=== PATIENT | female | born 1975 | race Caucasian/White ===

== ENCOUNTER 2020-08-23 19:41 | Emergency (ER) | payer OTHER ==
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
--- NOTE | 2020-08-24 06:53 | CR ---
Right foot: 3 views of the right foot were obtained. Comparison: No previous study. No calcaneal spurs are seen. Joint spaces are fairly well preserved. Small detached calcification is noted off the anterior talus which appears to be old. No acute fracture, dislocation or other bony abnormality is appreciated. Impression: 1. Calcification of the anterior talus which is believed to be old. 2. Nothing acute is appreciated on right foot exam. Diagnostic code #2
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
== END 2020-08-23 21:08 | disposition home or self-care (01) ==
LOC: JD.ED 19:41
DX: M79.671 Pain in right foot (principal); E03.9 Hypothyroidism, unspecified; Z79.899 Other long term (current) drug therapy; Z72.0 Tobacco use; Z88.5 Allergy status to narcotic agent; Y04.0XXA Assault by unarmed brawl or fight, initial encounter
CPT/HCPCS: 73610-26-RT; 73610-RT; 73630-26-RT; 73630-RT; 99283; 99284-25

== ENCOUNTER 2020-09-07 17:10 | Emergency (ER) | payer MEDICAID ==
[2020-09-07] MEDS ORDERED: Silver Sulfadiazine 1% Crm 400 GM Jar TOP ONE (17:35)
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
== END 2020-09-07 17:58 | disposition home or self-care (01) ==
LOC: JD.ED 17:10
DX: L56.8 Other specified acute skin changes due to ultraviolet radiation (principal); I10 Essential (primary) hypertension; E03.9 Hypothyroidism, unspecified; Z72.0 Tobacco use; Z88.5 Allergy status to narcotic agent; Z79.899 Other long term (current) drug therapy
CPT/HCPCS: 16020; 99282; A9270; 99283

== ENCOUNTER 2020-10-19 15:34 | Emergency (ER) | payer MEDICAID ==
[2020-10-19] MEDS ORDERED: Ondansetron 4 MG/2 ML SDV IVPUSH ONE (16:19)
[2020-10-19] MEDS ORDERED: Sodium Chloride 0.9% 1,000 ML IV STA (16:19)
[2020-10-19] MEDS ORDERED: HYDROmorphone 0.5 MG/0.5 ML Syringe IVPUSH ONE (16:19)
--- NOTE | 2020-10-19 17:15 | CT ---
CT abdomen and pelvis Technique: Multiple axial sections were obtained from above the dome of the diaphragm inferiorly to the pubic symphysis. Intravenous and oral contrast was not utilized. Reconstructed coronal and sagittal images were obtained. Comparison: No prior abdominal imaging is available. Findings: Kidneys show no abnormal calcifications. No ureteral dilatation is seen. No discrete mass is seen within either kidney. No abnormality is definitely appreciated within the bladder. Visualized lung bases show nothing acute. Noncontrast appearance of the liver shows no discrete abnormality. Spleen size is normal. Adrenal glands show no focal abnormality. Pancreas shows no discrete abnormality. Gallbladder contains no calcified gallstones. Aorta shows no aneurysm. No retroperitoneal adenopathy or mesenteric abnormalities are seen. Appendix is seen which is normal in size. No pelvic mass or adenopathy is seen. Prior hysterectomy is incidentally noted. Bone window settings were reviewed which show scattered degenerative change within the spine. No acute osseous abnormality is appreciated. Impression: 1. No renal calculi, ureteral dilatation or ureteral stone is seen. 2. Nothing acute is definitely appreciated on noncontrast CT study of the abdomen and pelvis. 3. No etiology is definitely identified to explain hematuria or flank pain. Diagnostic code #2
[2020-10-19] MEDS ORDERED: Ketorolac 30 MG/ML SDV IVPUSH ONE (18:09)
[2020-10-19] MEDS ORDERED: Potassium Chloride 20 MEQ Tab.ER PO ONE (18:13)
--- NOTE | 2020-10-19 18:17 | EDM.PDOC ---
ED HPI GENERAL MEDICAL PROBLEM - General Chief Complaint: Genitourinary Problem Stated Complaint: POSS KIDNEY STONES/INFECTION Time Seen by Provider: 10/19/20 15:46 Source of Information: Reports: Patient, RN Notes Reviewed History Limitations: Reports: No Limitations - History of Present Illness INITIAL COMMENTS - FREE TEXT/NARRATIVE: Patient is a 45-year-old female presenting to the emergency department with complaints of hematuria and bilateral back pain with the left being worse than the right. Reports back pain has been going on for few days and she just noticed hematuria today. Denies any burning with urination but does state that she has some burning suprapubically. She feels she may have a kidney stone, although she does not have a history of kidney stones. She does have a history of recurrent urinary tract infections. Denies any fever, chills, nausea, or vomiting. Middle Back Pain Score (Numeric/FACES): 8 - Related Data Allergies Allergy/AdvReac Type Severity Reaction Status Date / Time morphine Allergy Severe Airway Verified 09/07/20 17:24 Tightness Home Meds: Home Meds Cyclobenzaprine [Flexeril] 10 mg PO DAILY 08/23/20 [History] Dicyclomine [Bentyl] 10 mg PO ASDIRECTED PRN 08/23/20 [History] Gabapentin [Neurontin] 1 tab PO TID #9 tab 08/23/20 [Rx] Levothyroxine [Synthroid] 75 mcg PO ACBREAKFAST 08/23/20 [History] Ondansetron [Zofran ODT] 4 mg PO Q6H PRN 08/23/20 [History] lamoTRIgine [LaMICtal] 100 mg PO DAILY 08/23/20 [History] ALPRAZolam [Xanax] 1 mg PO TID 09/07/20 [History] Ciprofloxacin HCl [Cipro] 500 mg PO BID 7 Days #14 tablet 10/19/20 [Rx] Dozepin 100 mg PO BEDTIME 10/19/20 [History] Lurasidone HCl [Latuda] 40 mg PO DAILY 10/19/20 [History] Past Medical History Cardiovascular History: Reports: Hypertension Gastrointestinal History: Reports: GERD Musculoskeletal History: Reports: Fracture Psychiatric History: Reports: Anxiety, Bipolar, Depression, OCD Endocrine/Metabolic History: Reports: Hypothyroidism Oncologic (Cancer) History: Reports: Cervix - Infectious Disease History Infectious Disease History: Reports: Chicken Pox - Past Surgical History Female Surgical History: Reports: Hysterectomy, Oophorectomy Musculoskeletal Surgical History: Reports: ORIF Social & Family History - Tobacco Use Tobacco Use Status *Q: Current Every Day Tobacco User Years of Tobacco use: 30 Packs/Tins Daily: 1 - Caffeine Use Caffeine Use: Reports: Coffee - Recreational Drug Use Recreational Drug Use: No - Living Situation & Occupation Living situation: Reports: , Other ([facility] with her boyfriend) Occupation: Unemployed ED ROS GENERAL - Review of Systems Review Of Systems: See Below Constitutional: Reports: No Symptoms. Denies: Fever, Chills HEENT: Reports: No Symptoms Respiratory: Reports: No Symptoms Cardiovascular: Reports: No Symptoms, Palpitations GI/Abdominal: Reports: No Symptoms. Denies: Abdominal Pain, Nausea, Vomiting : Reports: Flank Pain, Hematuria, Other (suprapubic "burning"). Denies: Dysuria Musculoskeletal: Reports: Back Pain Skin: Reports: No Symptoms Neurological: Reports: No Symptoms Psychiatric: Reports: No Symptoms Hematologic/Lymphatic: Reports: No Symptoms Immunologic: Reports: No Symptoms ED EXAM, RENAL/ - Physical Exam Exam: See Below Exam Limited By: No Limitations General Appearance: Alert, WD/WN, No Apparent Distress Respiratory/Chest: No Respiratory Distress, Lungs Clear, Normal Breath Sounds, No Accessory Muscle Use, Chest Non-Tender Cardiovascular: Normal Peripheral Pulses, Regular Rate, Rhythm, No Edema, No Gallop, No JVD, No Murmur, No Rub GI/Abdominal: Normal Bowel Sounds, Soft, Non-Tender, No Organomegaly, No Distention, No Abnormal Bruit, No Mass Back Exam: Normal Inspection, Full Range of Motion, CVA Tenderness (L), CVA Tenderness (R), Other Neurological: Alert, Oriented, CN II-XII Intact, Normal Cognition, Normal Gait, Normal Reflexes, No Motor/Sensory Deficits Psychiatric: Normal Affect, Normal Mood Skin Exam: Warm, Dry, Intact, Normal Color, No Rash Course - Vital Signs Last Recorded V/S: Last Vital Signs Temp 98.1 F 10/19/20 15:51 Pulse 81 10/19/20 15:51 Resp 20 10/19/20 15:51 BP 125/93 H 10/19/20 15:51 Pulse Ox 97 10/19/20 15:51 - Orders/Labs/Meds Labs: Laboratory Tests 10/19/20 10/19/20 10/19/20 Range/Units 16:05 16:34 16:34 WBC 7.19 (3.98-10.04) K/mm3 RBC 4.30 (3.98-5.22) M/mm3 Hgb 12.7 (11.2-15.7) gm/dl Hct 37.9 (34.1-44.9) % MCV 88.1 (79.4-94.8) fl MCH 29.5 (25.6-32.2) pg MCHC 33.5 (32.2-35.5) g/dl RDW Std Deviation 49.6 H (36.4-46.3) fL Plt Count 353 (182-369) K/mm3 MPV 8.9 L (9.4-12.3) fl Neut % (Auto) 46.2 (34.0-71.1) % Lymph % (Auto) 43.8 (19.3-51.7) % [place] % (Auto) 7.1 (4.7-12.5) % Eos % (Auto) 2.1 (0.7-5.8) Baso % (Auto) 0.7 (0.1-1.2) % Neut # (Auto) 3.32 (1.56-6.13) K/mm3 Lymph # (Auto) 3.15 (1.18-3.74) K/mm3 [place] # (Auto) 0.51 H (0.24-0.36) K/mm3 Eos # (Auto) 0.15 (0.04-0.36) K/mm3 Baso # (Auto) 0.05 (0.01-0.08) K/mm3 Sodium 139 (136-145) mEq/L Potassium 3.0 L (3.5-5.1) mEq/L Chloride 102 (98-107) mEq/L Carbon Dioxide 26 (21-32) mEq/L Anion Gap 14.0 (5-15) BUN 22 H (7-18) mg/dL Creatinine 1.1 H (0.55-1.02) mg/dL Est Cr Clr Drug Dosing 64.13 mL/min Estimated GFR (MDRD) 54 (>60) mL/min BUN/Creatinine Ratio 20.0 H (14-18) Glucose 91 (70-99) mg/dL Calcium 8.4 L (8.5-10.1) mg/dL Total Bilirubin 0.4 (0.2-1.0) mg/dL AST 29 (15-37) U/L ALT 44 (14-59) U/L Alkaline Phosphatase 79 (46-116) U/L Total Protein 7.2 (6.4-8.2) g/dl Albumin 3.9 (3.4-5.0) g/dl Globulin 3.3 gm/dL Albumin/Globulin Ratio 1.2 (1-2) Urine Color Yellow (Yellow) Urine Appearance Cloudy H (Clear) Urine pH 5.5 (5.0-8.0) Ur Specific [place] > or = 1.030 (1.005-1.030) Urine Protein 2+ H (Negative) Urine Glucose (UA) Negative (Negative) Urine Ketones Trace H (Negative) Urine Occult Blood 3+ H (Negative) Urine Nitrite Negative (Negative) Urine Bilirubin 1+ H (Negative) Urine Urobilinogen 1.0 (0.2-1.0) Ur Leukocyte Esterase 1+ H (Negative) Urine RBC >100 H (0-5) /hpf Urine WBC 50-75 H (0-5) /hpf Ur Squamous Epith Cells 5-10 H (0-5) /hpf Urine Bacteria Moderate H (FEW) /hpf Urine Mucus Few (FEW) /hpf Meds: Medications Discontinued Medications Generic Name Dose Route Start Last Admin Trade Name Michaelq PRN Reason Stop Dose Admin Hydromorphone HCl 0.5 mg 10/19/20 16:19 10/19/20 16:31 Hydromorphone 0.5 Mg/0.5 Ml Syringe IVPUSH 10/19/20 16:20 0.5 mg ONETIME ONE Administration Sodium Chloride 1,000 mls @ 999 mls/hr 10/19/20 16:19 10/19/20 16:31 Normal Saline IV 10/19/20 17:19 999 mls/hr NOW STA Administration Ketorolac Tromethamine 30 mg 10/19/20 18:09 10/19/20 18:30 Ketorolac 30 Mg/Ml Sdv IVPUSH 10/19/20 18:10 30 mg ONETIME ONE Administration Ondansetron HCl 4 mg 06/14/21 16:19 10/19/20 16:31 Ondansetron 4 Mg/2 Ml Sdv IVPUSH 10/19/20 16:20 4 mg ONETIME ONE Administration Potassium Chloride 40 meq 10/19/20 18:13 10/19/20 18:30 Potassium Chloride 20 Meq Tab.Er PO 10/19/20 18:14 40 meq ONETIME ONE Administration - Re-Assessments/Exams Free Text/Narrative Re-Assessment/Exam: Patient is a 45-year-old female presenting to the emergency part with complaints of hematuria and bilateral flank pain with the left being worse than the right. She does have a history of urinary tract infections but has had no previous kidney stones. Denies any fever, chills, nausea, or vomiting. I have ordered blood work, urinalysis, and CT scan of the abdomen pelvis without contrast. 10/19/20 18:15 Hematology significant for potassium low at 3.0, BUN 22, creatinine 1.1. Urinalysis found to be cloudy with 2+ protein, trace ketones, 3+ occult blood, 1+ bili, 1+ leukocyte esterase, greater than 100 RBCs, 50-75 WBCs, 5-10 squamous epithelial cells, and moderate bacteria. CT scan of the abdomen pelvis shows: 1. No renal calculi, ureteral dilatation, or ureteral stone is seen. 2. Nothing acute is definitively appreciated on noncontrast CT study of the abdomen pelvis. 3. No etiology is definitely seen to explain hematuria or flank pain I have ordered potassium 40 mill equivalents to be given now. Patient will be started on ciprofloxacin for treatment of pyelonephritis. I also give her Toradol 30 mg IV now. Discharge instructions as documented. Departure - Departure Time of Disposition: 18:15 Disposition: Home, Self-Care 01 Condition: Good Clinical Impression: UTI, Urinary tract infectious disease - Discharge Information *PRESCRIPTION DRUG MONITORING PROGRAM REVIEWED*: No *COPY OF PRESCRIPTION DRUG MONITORING REPORT IN PATIENT CRISTOBAL: No Prescriptions: Ciprofloxacin HCl [Cipro] 500 mg PO BID 7 Days #14 tablet Instructions: Urinary Tract Infection, Adult Referrals: Lara Casillas CERTIFIED CYTOTECHNOLOGIST [Primary Care Provider] - Forms: ED Department Discharge Additional Instructions: You were seen in the emergency department today for blood in your urine as well as back pain. Work-up included blood work, urinalysis, and CT scan. Results of your work-up indicate that you have a urinary tract infection. Your potassium was also found to be low so you did receive potassium supplementation today. You did not have kidney stones. You been started on ciprofloxacin of kidney infection. Take this medication as prescribed. He may use Tylenol and ibuprofen as needed for discomfort. If you should experience any new or worsening symptoms, please not hesitate to return to the emergency department for reevaluation. Sepsis Event Note (ED) - Evaluation Sepsis Screening Result: No Definite Risk
== END 2020-10-19 18:31 | disposition home or self-care (01) ==
LOC: JD.ED 15:34
DX: N39.0 Urinary tract infection, site not specified (principal); E03.9 Hypothyroidism, unspecified; I10 Essential (primary) hypertension; Z90.710 Acquired absence of both cervix and uterus; Z72.0 Tobacco use; Z79.899 Other long term (current) drug therapy; Z88.6 Allergy status to analgesic agent
CPT/HCPCS: 36415; 74176; 80053; 81001; 85025; 87086; 96374; 96375; 99284; A9270; J1170; J1885; J2405; J7030; 99283

== ENCOUNTER 2021-01-23 10:27 | Emergency (ER) | payer MEDICAID ==
--- NOTE | 2021-01-23 11:15 | EDM.PDOC ---
ED HPI GENERAL MEDICAL PROBLEM - General Chief Complaint: General Stated Complaint: [facility] Time Seen by Provider: 01/23/21 10:50 - History of Present Illness INITIAL COMMENTS - FREE TEXT/NARRATIVE: 45-year-old female brought in by EMS after becoming lightheaded and having to sit down. Patient states she was recently started on 2 medications for hepatitis. And every time she takes them she gets lightheaded after taking them. Patient took them today then walk to the [facility] and had problems in route to the [facility]. EMS was called. 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 - Related Data Allergies Allergy/AdvReac Type Severity Reaction Status Date / Time morphine Allergy Severe Airway Verified 01/23/21 10:45 Tightness Home Meds: Home Meds Cyclobenzaprine [Flexeril] 10 mg PO DAILY 08/23/20 [History] Dicyclomine [Bentyl] 10 mg PO ASDIRECTED PRN 08/23/20 [History] Gabapentin [Neurontin] 1 tab PO TID #9 tab 08/23/20 [Rx] Levothyroxine [Synthroid] 75 mcg PO ACBREAKFAST 08/23/20 [History] Ondansetron [Zofran ODT] 4 mg PO Q6H PRN 08/23/20 [History] lamoTRIgine [LaMICtal] 100 mg PO DAILY 08/23/20 [History] ALPRAZolam [Xanax] 1 mg PO TID 09/07/20 [History] Dozepin 100 mg PO BEDTIME 10/19/20 [History] Lurasidone HCl [Latuda] 40 mg PO DAILY 10/19/20 [History] Past Medical History Cardiovascular History: Reports: Hypertension Gastrointestinal History: Reports: GERD Musculoskeletal History: Reports: Fracture Psychiatric History: Reports: Anxiety, Bipolar, Depression, OCD Endocrine/Metabolic History: Reports: Hypothyroidism Oncologic (Cancer) History: Reports: Cervix - Infectious Disease History Infectious Disease History: Reports: Chicken Pox - Past Surgical History Female Surgical History: Reports: Hysterectomy, Oophorectomy Musculoskeletal Surgical History: Reports: ORIF Social & Family History - Tobacco Use Tobacco Use Status *Q: Never Tobacco User Second Hand Smoke Exposure: No - Caffeine Use Caffeine Use: Reports: Coffee - Recreational Drug Use Recreational Drug Use: Yes Drug Use in Last 12 Months: No Recreational Drug Use Frequency: Not Used In Over 6 Months - Living Situation & Occupation Living situation: Reports: , Other (Currently in [facility], ordinarily with her boyfriend) Occupation: Unemployed ED ROS GENERAL - Review of Systems Review Of Systems: Comprehensive ROS is negative, except as noted in HPI. ED EXAM, GENERAL - Physical Exam Exam: See Below Exam Limited By: No Limitations General Appearance: Alert, Anxious Eye Exam: Bilateral Eye: Normal Inspection Ears: Normal External Exam, Normal Canal, Hearing Grossly Normal, Normal TMs Nose: Normal Inspection, Normal Mucosa, No Blood Throat/Mouth: Normal Inspection, Normal Lips, Normal Gums, Normal Oropharynx, Normal Voice, No Airway Compromise Head: Atraumatic, Normocephalic Neck: Normal Inspection, Supple, Non-Tender, Full Range of Motion. No: Lymphadenopathy (L), Lymphadenopathy (R) Respiratory/Chest: No Respiratory Distress, Lungs Clear, Normal Breath Sounds Cardiovascular: Regular Rate, Rhythm, No Murmur GI/Abdominal: Normal Bowel Sounds, Soft, Non-Tender Course - Vital Signs Last Recorded V/S: Last Vital Signs Temp 36.8 C 01/23/21 10:37 Pulse 115 H 01/23/21 10:37 Resp 16 01/23/21 10:37 BP 110/66 01/23/21 10:37 Pulse Ox 77 L 01/23/21 10:37 - Re-Assessments/Exams Free Text/Narrative Re-Assessment/Exam: 01/23/21 11:14 Patient was doing better at the time of my exam and decided she was going to sign out AGAINST MEDICAL ADVICE after my exam. Departure - Departure Time of Disposition: 11:12 Disposition: Against Medical Advice 07 Clinical Impression: Near syncope - Discharge Information Sepsis Event Note (ED) - Evaluation Sepsis Screening Result: No Definite Risk - Focused Exam Vital Signs: Vital Signs Temp Pulse Resp BP Pulse Ox 01/23/21 10:37 36.8 C 115 H 16 110/66 77 L
== END 2021-01-23 11:12 | disposition left against medical advice (07) ==
LOC: JD.ED 10:27
DX: R55 Syncope and collapse (principal); E03.9 Hypothyroidism, unspecified; I10 Essential (primary) hypertension; Z88.5 Allergy status to narcotic agent; Z79.899 Other long term (current) drug therapy
CPT/HCPCS: 99282; 99283